=== PATIENT | female | born 1965 | race Caucasian/White ===

== ENCOUNTER → 2016-12-09 | Outpatient (CLI) | payer BC ==
[~2016-12-09] MED LIST: B-COTAB18 PO; CALC200T PO; CHOL100010 PO; DSWCR TOP; EST1 PO; IBUP-103 PO; MULT-222 PO; NAPR-1169 PO; PROP20TA67 PO
[2016-12-09 17:30] LABS: BLOOD UREA NITROGEN 12 mg/dl (7-18); BUN/CREATININE RATIO 16.6 (10-20); CALCIUM 9.3 mg/dl (8.5-10.1); CARBON DIOXIDE 32 mmol/L (21-32); CHLORIDE 99 mmol/L (98-107); GLUCOSE 92 mg/dl (70-99); POTASSIUM 3.5 mmol/L (3.5-5.1); SODIUM 140 mmol/L (136-145)
== END | disposition home or self-care (01) ==
LOC: C.LABBC 14:04
PROVIDERS: ATTEND Internal Medicine
DX: R03.0 Elevated blood-pressure reading, without diagnosis of hypertension (principal)

== ENCOUNTER → 2017-01-12 | Outpatient (CLI) | payer BC ==
[2017-01-12 17:15] LABS: URINE APPEARANCE CLEAR (CLEAR); URINE BILIRUBIN NEG (NEG); URINE COLOR YELLOW; URINE NITRITE NEG (NEG); URINE PH 6.5 (4.5-7.5); URINE SPECIFIC GRAVITY 1.013 (1.000-1.030); UROBILINOGEN NEG (NEG)
[2017-01-12 17:21] LABS: MANUAL MICROSCOPIC REQUIRED? NO; REVIEW REQ? NO
[2017-01-12 17:27] LABS: ALT/SGPT 40 U/L (12-78); AST/SGOT 26 U/L (15-37); BLOOD UREA NITROGEN 14 mg/dl (7-18); BUN/CREATININE RATIO 17.2 (10-20); CALCIUM 9.3 mg/dl (8.5-10.1); CARBON DIOXIDE 28 mmol/L (21-32); CHLORIDE 101 mmol/L (98-107); CREATININE 0.83 mg/dl (0.60-1.20); GLUCOSE 92 mg/dl (70-99); POTASSIUM 3.3 mmol/L (3.5-5.1); SODIUM 141 mmol/L (136-145)
[2017-01-12 17:29] LABS: ALB/GLOB RATIO 1.2 (0.9-2); ALKALINE PHOSPHATASE 69 U/L (45-117)
== END | disposition home or self-care (01) ==
LOC: C.LABBC 15:06
PROVIDERS: ATTEND Internal Medicine
DX: R35.0 Frequency of micturition (principal)

== ENCOUNTER → 2017-05-05 | Outpatient (CLI) | payer BC ==
--- NOTE | 2017-05-05 14:41 | DIAGNOSTIC IMAGING REPORT ---
LEFT SHOULDER 3 VIEWS HISTORY: SHOULDER PAIN COMPARISON: None. FINDINGS: There is suggestion of a small nondisplaced fracture at the distal acromion. The left clavicle is intact. No fracture or dislocation within the left humeral head. Soft tissues are unremarkable. No radiopaque foreign bodies. IMPRESSION: Probable small nondisplaced fracture at the distal acromion. Electronically signed by: Shashi Groves M.D. 05/05/2017 2:40 PM Dictated Date/Time: 05/05/2017 2:38 PM
== END | disposition home or self-care (01) ==
LOC: C.RADBC 14:24
PROVIDERS: ATTEND Physician Assistant Medical
DX: M25.512 Pain in left shoulder (principal)

== ENCOUNTER → 2017-08-12 | Outpatient (CLI) | payer BC ==
--- NOTE | 2017-08-12 15:19 | MAMMOGRAPHY REPORT ---
BILATERAL DIGITAL SCREENING MAMMOGRAM TOMOSYNTHESIS WITH CAD: 08/12/2017 TECHNIQUE: Breast tomosynthesis in addition to standard 2D mammography was performed. Current study was also evaluated with a Computer Aided Detection (CAD) system. COMPARISON: Comparison is made to exams dated: 08/11/2016 mammogram, 08/07/2015 mammogram, 08/01/2014 ma mmogram, 07/28/2013 mammogram, 07/07/2012 mammogram, and 07/03/2011 mammogram - [facility] ter. BREAST COMPOSITION: The tissue of both breasts is heterogeneously dense, which may obscure small mas ses. FINDINGS: No suspicious masses, calcifications, or areas of architectural distortion are noted in ei ther breast. There has been no significant interval change compared to prior exams. Bilateral asymme tries are stable compared to prior exams. IMPRESSION: ACR BI-RADS CATEGORY 2: BENIGN There is no mammographic evidence of malignancy. A 1 year screening mammogram is recommended. The pa tient will receive written notification of the results. Approximately 10% of breast cancers are not detected with mammography. A negative mammographic report should not delay biopsy if a clinically suggestive mass is present. Demetria Delacruz M.D. ah/:08/12/2017 11:03:12 [employer]: Kathy CHÁVEZ(R)(M), [facility] letter sent: Normal 1/2 BI-RADS Code: ACR BI-RADS Category 2: Benign
== END | disposition home or self-care (01) ==
LOC: C.MAMM 09:07
PROVIDERS: ATTEND Obstetrics & Gynecology
DX: Z12.31 Encounter for screening mammogram for malignant neoplasm of breast (principal)

== ENCOUNTER → 2018-01-20 | Day surgery (SDC) | payer OTHER ==
[~2018-01-20] VITALS: Ht 167.6 cm; Wt 60.2 kg
[~2018-01-20] MED LIST changes: +AMLO-110 PO; -CALC200T PO; +CALCTAB5 PO; -CHOL100010 PO; +CHOL2000 PO; -DSWCR TOP; +DVN80 PO; -EST1 PO; +ESTR0.5T3 PO; -IBUP-103 PO; +LIDOCAINE HCL 2% 2 ML VIAL (20MG/ML) ONE; +MIDAZOLAM HCL 1 MG/ML 2ML VIAL ONE; -MULT-222 PO; +MULT-506 PO; -NAPR-1169 PO; -PROP20TA67 PO; +PROPOFOL IV EMULSION 10 MG/ML 20 ML VIAL IV ONE; +SODIUM CHLORIDE 0.9% 500ML 500 ML IV ONE
--- NOTE | 2018-01-20 09:10 | Endo History and Physical ---
History & Physical Date of Service: Jan 20, 2018. Chief Complaint: Screening colonoscopy. Referring Physician: Dr. Jose Beckett History of Present Illness Family history of colorectal cancer, BRBPR Past Surgical History Hx Cardiac Surgery: No Hx Internal Defibrillator: No Hx Pacemaker: No Hx Abdominal Surgery: Yes (TAM BSO) Hx of Implantable Prosthesis: No Hx Post-Op Nausea and Vomiting: No Hx Cancer Surgery: No Hx Thoracic Surgery: No Hx Orthopedic: No Hx Urinary Tract Surgery: No Family History Colon CA Social History Smoking Status: Never Smoker Hx Substance Use: No Hx Alcohol Use: Yes (OCCASIONALLY) Allergies Coded Allergies: Clarithromycin (Verified Allergy, Intermediate, MIGRAINE, 01/20/18) Flu Virus Vaccine (Verified Allergy, Mild, HIVES, 01/20/18) Thimerosal (Verified Allergy, Mild, HIVES, 01/20/18) Adhesives (Verified Allergy, Unknown, SKIN IRRITATION, 01/12/18) Current Medications Reported Home Medications Medications Dose Route/Sig Max Daily Dose Days Date Category Caltrate 600 (Calcium Carbonate) 1,500 Mg Tab 1 Tab PO BID 11/26/17 Reported Vitamin B Complex (B-Complex Vitamins) 1 Tab Tab 1 Tab PO HS 11/26/17 Reported Vitamin D3 (Cholecalciferol) 2,000 Unit Cap 1 Cap PO Q2D 11/26/17 Reported Multivitamin (Multivitamins) Tab 1 Tab PO HS 11/26/17 Reported Diovan (Valsartan) 80 Mg Tab 80 Mg PO QAM 11/26/17 Reported Norvasc (Amlodipine Besylate) 5 Mg Tab 5 Mg PO QAM 11/26/17 Reported Estradiol 0.5 Mg Tab 1 Tab PO QAM 11/26/17 Reported Vital Signs Weight (Kilograms): 0 Height (Feet): 5 Height (Inches): 6 Physical Exam General Appearance: WD/WN, no apparent distress Respiratory/Chest: Auscultation: breath sounds normal, no wheezing Cardiovascular: Heart Auscultation: RRR, no murmurs Assessment and Plan Colonoscopy today.
[2018-01-20 09:20] VITALS: Ht 167.6 cm; Wt 60.2 kg
--- NOTE | 2018-01-20 10:18 | GI REPORT ---
Procedure Date: 01/20/2018 9:18 AM Procedure: Colonoscopy Indications: Colon cancer screening in patient at increased risk: Family history of colorectal cancer in multiple 2nd degree relatives, Incidental - Rectal bleeding Medicines: Monitored Anesthesia Care Complications: No immediate complications. Estimated blood loss: None. Estimated Blood Loss: Estimated blood loss: none. Procedure: Pre-Anesthesia Assessment: - Prior to the procedure, a History and Physical was performed, and patient medications, allergies and sensitivities were reviewed. The patient's tolerance of previous anesthesia was reviewed. - ASA Grade Assessment: II - A patient with mild systemic disease. After I obtained informed consent, the scope was passed under direct vision. Throughout the procedure, the patient's blood pressure, pulse, and oxygen saturations were monitored continuously. The Scope was introduced through the anus and advanced to the terminal ileum, with identification of the appendiceal orifice and IC valve. The colonoscopy was performed with ease. The patient tolerated the procedure well. The quality of the bowel preparation was excellent. The bowel preparation used was split dose MIralax. Findings: Many medium-mouthed diverticula were found in the sigmoid colon. Internal hemorrhoids were found during retroflexion. The hemorrhoids were medium-sized. Impression: - Diverticulosis in the sigmoid colon. - Internal hemorrhoids. - No specimens collected. - The colon was otherwise normal to the terminal ileum with retroflexed views of the ascending colon and rectum. Recommendation: - Use fiber, for example Citrucel, Fibercon, Konsyl or Metamucil. - Repeat colonoscopy in 5 years for screening purposes. - Discharge patient to home (with escort). Edwin Owens M.D. Edwin Owens MD 01/20/2018 10:18:06 AM This report has been signed electronically. Note Initiated On: 01/20/2018 9:18 AM I attest to the content of the Intraoperative Record and orders documented therein, exceptions below
--- NOTE | 2018-01-20 10:22 | Discharge Instructions ---
Endoscopy Patient Instructions Date / Procedure(s) Performed Jan 20, 2018. Colonoscopy Allergy Information Coded Allergies: Clarithromycin (Verified Allergy, Intermediate, MIGRAINE, 01/20/18) Flu Virus Vaccine (Verified Allergy, Mild, HIVES, 01/20/18) Thimerosal (Verified Allergy, Mild, HIVES, 01/20/18) Adhesives (Verified Allergy, Unknown, SKIN IRRITATION, 01/12/18) Discharge Date / Findings Jan 20, 2018. Diverticulosis, internal hemorrhoids Medication Instructions Stopped Medication(s): stopped MVI week ago Restart Stopped Medication(s): Restart all medications. Provider Instructions Activity Restrictions - No exercising or heavy lifting for 24 hours. - Do not drink alcohol the day of the procedure. - Do not drive a car or operate machinery until the day after the procedure. - Do not make any important decisions or sign important papers in 24 hours after the procedure. Following Day: - Return to full activity which may include returning to work/school. Diet Start your diet with liquids and light foods (jello, soup, juice, toast). Then eat your usual diet if not nauseated. Treatment For Common After Affects For mild abdominal pain, bloating, or excessive gas: - Rest - Eat lightly - Lie on right side Follow-Up Information Follow-up with Dr. Jose Becektt as scheduled Anesthesia Information What You Should Know You have had a procedure that required some medicine to reduce anxiety and discomfort. This treatment is called moderate sedation. After receiving the treatment, you may be sleepy, but you will be able to breathe on your own. The effects of the treatment may last for several hours. Follow these instructions along with Activity/Diet recommendations noted above: * Do NOT do anything where dizziness or clumsiness would be dangerous. * Rest quietly at home today, then you can be up and about tomorrow. * Have a responsible person stay with you the rest of today. * You may have had an I.V. today. If so, you may take the dressing off later today. Recommendations Call your doctor if: * Trouble breathing * Continuous vomiting for more than 24 hours * Temperature above 101 degrees * Severe abdominal pain or bloating * Pain not relieved by pain medicine ordered * There is increased drainage or redness from any incision * A large amount of rectal bleeding greater than 2-3 tablespoons. (If you had a polyp/s removed or have hemorrhoids, a small amount of blood - from the rectum is to be expected.) * You have any unanswered questions or concerns. IN THE EVENT OF A SERIOUS EMERGENCY, GO TO THE NEAREST EMERGENCY ROOM Your discharge instructions were prepared by provider Edwin Owens. Patient Instructions Signature Page Samantha Stearns Patient (or Guardian) Signature/Date: I have read and understand the instructions given to me by my caregivers. Caregiver/RN/Doctor Signature/Date: The above-named patient and/or guardian has received patient instructions on this date. + Original Patient Signature Page (only) stays with chart. Please make copy for patient.
--- NOTE | 2018-01-20 10:45 | Anesthesiology Progress Note ---
Anesthesia Post Op Note Date & Time Jan 20, 2018 at 10:45 Vital Signs Pain Intensity: 4 Vital Signs Past 12 Hours Date Time Temp Pulse Resp B/P (MAP) Pulse Ox O2 Delivery O2 Flow Rate FiO2 01/20/18 10:31 70 16 115/73 (87) 98 Room Air 01/20/18 10:16 76 16 107/71 (83) 99 Room Air 01/20/18 09:11 36.8 89 20 149/71 (97) 95 Room Air Notes Mental Status: alert / awake / arousable, participated in evaluation Pt Amnestic to Procedure: Yes Nausea / Vomiting: adequately controlled Pain: adequately controlled Airway Patency, RR, SpO2: stable & adequate BP & HR: stable & adequate Hydration State: stable & adequate Anesthetic Complications: no major complications apparent
[2018-01-20 10:46] VITALS: BP 112/73; PULSE 71; O2SAT 97
== END | disposition home or self-care (01) ==
LOC: C.GI 08:37
PROVIDERS: ATTEND Internal Medicine Gastroenterology
DX: Z12.11 Encounter for screening for malignant neoplasm of colon (principal); Z80.0 Family history of malignant neoplasm of digestive organs; K57.30 Diverticulosis of large intestine without perforation or abscess without bleeding; K64.8 Other hemorrhoids; I10 Essential (primary) hypertension; Z88.7 Allergy status to serum and vaccine; Z88.1 Allergy status to other antibiotic agents; Z90.710 Acquired absence of both cervix and uterus; Z90.722 Acquired absence of ovaries, bilateral; Z90.79 Acquired absence of other genital organ(s)